=== PATIENT | male | born 1975 | race Caucasian/White ===

== ENCOUNTER 2016-11-27 19:39 | Emergency (ER) | payer SELFPAY ==
[~2016-11-27] VITALS: Ht 142.2 cm; Wt 80.5 kg
[~2016-11-27 19:39] MED LIST: NAPR-260 PO
[2016-11-27 20:20] VITALS: Ht 142.2 cm; Wt 80.5 kg
== END 2016-11-27 23:43 | disposition left against medical advice (07) ==
LOC: FTE 19:39
DX: Z53.21 Procedure and treatment not carried out due to patient leaving prior to being seen by health care provider (principal)